=== PATIENT | female | born 1960 | race Asian ===

== ENCOUNTER 2022-12-02 18:11 | Emergency (ER) | payer OTHER ==
[~2022-12-02] VITALS: Ht 162.6 cm; Wt 69.0 kg
[2022-12-02 18:21] VITALS: PULSE 87
[2022-12-02 18:22] VITALS: BP 167/71; RESP 18; TEMP 98; O2SAT 98
[2022-12-02] MEDS ORDERED: IBUP-2029 MT (21:07)
[2022-12-02] MEDS ORDERED: IBUPROFEN 600MG TABLET PO ONE (21:15)
== END 2022-12-02 22:51 | disposition home or self-care (01) ==
LOC: EDBD 18:11 → ER 18:11
DX: S60.031A Contusion of right middle finger without damage to nail, initial encounter (principal); S60.041A Contusion of right ring finger without damage to nail, initial encounter; Z90.49 Acquired absence of other specified parts of digestive tract; X58.XXXA Exposure to other specified factors, initial encounter; Y93.89 Activity, other specified; Y92.89 Other specified places as the place of occurrence of the external cause; Y99.8 Other external cause status
CPT/HCPCS: 29130; 73130; 99283